=== PATIENT | female | born 1960 | race Two or more races ===

== ENCOUNTER 2024-02-25 07:40 | Day surgery (SDC) | payer OTHER ==
[2024-02-25] MEDS ORDERED: METRONIDAZOLE/SODIUM CHLORIDE 500 MG/100 ML PIGGYBACK IV ONE (08:32)
[2024-02-25] MEDS ORDERED: CEFTRIAXONE SODIUM 2,000 MG VIAL ONE (08:32)
[2024-02-25] MEDS ORDERED: HEMOSTATIC MATRIX 1 KIT KIT TOP ONE (09:58)
[2024-02-25] MEDS ORDERED: DIBUCAINE 30 GM TUBE ONE (09:58)
[2024-02-25] MEDS ORDERED: POVIDONE-IODINE 118 ML BOTT TOP ONE (09:58)
[2024-02-25] MEDS ORDERED: TAMSULOSIN HCL 0.4 MG CAP PO ONE ×2 (12:00→12:39)
[2024-02-25] MEDS ORDERED: OXYC1TAB9 PO (12:19)
== END 2024-02-25 17:20 | disposition home or self-care (01) ==
LOC: CIR.AMB 07:40
PROVIDERS: ATTEND Surgery
DX: D12.9 Benign neoplasm of anus and anal canal (principal); K62.89 Other specified diseases of anus and rectum